=== PATIENT | male | born 1975 | race Caucasian/White ===

== ENCOUNTER 2018-01-15 05:53 | Observation (INO) | payer OTHER ==
[2018-01-15] MEDS ORDERED: CEFAZOLIN 2 GM/50 ML (PMX) 50 ML IVPB (06:33)
[2018-01-15] MEDS ORDERED: FENTAnyl 50 MCG/ML VIAL ×2 (06:50→09:52)
[2018-01-15] MEDS ORDERED: MIDAZOLAM 1 MG/ML 2 ML INJ (06:50)
[2018-01-15] MEDS ORDERED: LIDOCAINE 2% (SDV) 5 ML INJ (06:51)
[2018-01-15] MEDS ORDERED: ROCURONIUM 50 MG INJ (06:51)
[2018-01-15] MEDS ORDERED: ONDANSETRON 4 MG INJ (06:51)
[2018-01-15] MEDS ORDERED: PROPOFOL 20 ML (06:51)
[2018-01-15] MEDS ORDERED: CEFAZOLIN 1 GM INJ (06:51)
[2018-01-15] MEDS ORDERED: PROPOFOL 100 ML ×2 (06:52→09:05)
[2018-01-15] MEDS ORDERED: LACTATED RINGER'S 1,000 ML IV* (07:00)
[2018-01-15] MEDS ORDERED: HYDROmorphONE 2 MG/ML SYG (08:11)
[2018-01-15] MEDS ORDERED: SUCCINYLCHOLINE CHLORIDE 100 MG/5 ML SYG IV (08:41)
[2018-01-15] MEDS: GELATIN SIZE 100 SPONGE (08:50)
[2018-01-15] MEDS: LIDOCAINE 1%/EPI 30 ML INJ (08:50)
[2018-01-15] MEDS: POLYMYXIN/BACITRACIN 1L IRRIG (08:51)
[2018-01-15] MEDS: THROMBIN 5000 UNIT VIAL (08:51)
[2018-01-15] MEDS ORDERED: SUGAMMADEX SODIUM 200 MG/2 ML VIAL IV (09:13)
[2018-01-15] MEDS: BETAMET NA PHOS/AC(6 MG/ML) 5ML INJ (10:15)
[2018-01-15] MEDS: BUPIVACAINE 0.25% (MPF) 30 ML INJ (10:15)
[2018-01-15] MEDS ORDERED: ONDANSETRON 4 MG INJ IV (11:00)
[2018-01-15] MEDS ORDERED: NALOXONE (0.4 MG/ML) INJ IV (11:00)
[2018-01-15] MEDS ORDERED: HYDROCODONE/APAP (5/325) TAB PO ×2 (11:00)
[2018-01-15] MEDS ORDERED: PROCHLORPERAZINE 10 MG TAB PO (11:00)
[2018-01-15] MEDS ORDERED: ACETAMINOPHEN 325 MG TAB PO (11:00)
[2018-01-15] MEDS ORDERED: NACL 0.9% 3 ML SYG IV (11:00)
[2018-01-15] MEDS ORDERED: HYDROmorphONE (0.2 MG/ML) 10ML SYG IV ×2 (11:29→11:30)
[2018-01-15] MEDS ORDERED: FENTAnyl 50 MCG/ML VIAL IV ×2 (11:30)
[2018-01-15] MEDS: HYDROmorphONE (0.2 MG/ML) 10ML SYG IV ×5 (11:33→12:00)
[2018-01-15] MEDS: ONDANSETRON 4 MG INJ IV (11:37)
== END 2018-01-15 15:30 | disposition home or self-care (01) ==
LOC: SDS 05:53 → REC 11:58
DX: M48.062 Spinal stenosis, lumbar region with neurogenic claudication (principal); M51.16 Intervertebral disc disorders with radiculopathy, lumbar region
CPT/HCPCS: 63030; 72100; 97161